=== PATIENT | female | born 1945 | race Caucasian/White ===

== ENCOUNTER → 2017-08-14 | Outpatient (CLI) | payer MEDICARE ==
[~2017-08-14] MED LIST: LIDOCAINE 1%, 20ML ONE; LIDOCAINE 1%-EPI 1:100K, 20ML ONE; SODIUM BICARBONATE 4.0%, 5ML ONE
== END | disposition home or self-care (01) ==
LOC: CFH 10:30
PROVIDERS: ATTEND Nurse Practitioner Primary Care
DX: N63.22 Unspecified lump in the left breast, upper inner quadrant (principal)
CPT/HCPCS: 19083; 88305; J3490; 77065

== ENCOUNTER → 2017-10-23 | Outpatient (CLI) | payer MEDICARE ==
[~2017-10-23] MED LIST changes: +ATOR40TA PO; +ERGO500017 PO; +LEVO150T5 PO; -LIDOCAINE 1%, 20ML ONE; -LIDOCAINE 1%-EPI 1:100K, 20ML ONE; +NADO80TA PO; -SODIUM BICARBONATE 4.0%, 5ML ONE
== END | disposition home or self-care (01) ==
LOC: STAR 08:45
PROVIDERS: ATTEND Surgery
DX: Z01.818 Encounter for other preprocedural examination (principal)
CPT/HCPCS: 93005

== ENCOUNTER → 2017-10-25 | Outpatient (CLI) | payer MEDICARE ==
[~2017-10-25] MED LIST changes: +LIDOCAINE 1%, 20ML ONE; +LIDOCAINE 1%-EPI 1:100K, 20ML ONE; +SODIUM BICARBONATE 4.0%, 5ML ONE
== END | disposition home or self-care (01) ==
LOC: CFH 07:21
PROVIDERS: ATTEND Surgery
DX: D24.2 Benign neoplasm of left breast (principal)
CPT/HCPCS: 19285; 77065; J3490

== ENCOUNTER 2017-10-28 06:09 | Day surgery (SDC) | payer MEDICARE ==
[2017-10-23 09:26] VITALS: BP 145/80
[~2017-10-28] VITALS: Ht 157.5 cm; Wt 82.7 kg
[~2017-10-28 06:09] MED LIST changes: -LIDOCAINE 1%, 20ML ONE; -LIDOCAINE 1%-EPI 1:100K, 20ML ONE; -SODIUM BICARBONATE 4.0%, 5ML ONE
[2017-10-28] MEDS ORDERED: BUPIVACAINE/PF 0.5% ONE (06:13)
[2017-10-28] MEDS ORDERED: EPINEPHRINE 1 MG/ML, 1ML ONE (06:14)
[2017-10-28] MEDS ORDERED: LACTATED RINGERS 1,000 ML IV SCH (06:36)
[2017-10-28] MEDS ORDERED: LIDOCAINE-MPF 1%, 2ML INFIL ONE (07:00)
[2017-10-28] MEDS ORDERED: MIDAZOLAM 1 MG/ML, 2ML ONE (07:14)
[2017-10-28] MEDS ORDERED: FENTANYL PF 100 MCG/2ML ONE (07:14)
[2017-10-28] MEDS ORDERED: CEFAZOLIN 1,000 MG ONE (07:27)
[2017-10-28] MEDS ORDERED: DEXAMETHASONE 4 MG/ML, 1ML ONE (07:27)
[2017-10-28] MEDS ORDERED: ONDANSETRON 2MG/ML, 2ML ONE (07:27)
[2017-10-28] MEDS ORDERED: PROPOFOL 10 MG/ML, 20ML ONE (07:27)
[2017-10-28] MEDS ORDERED: PROMETHAZINE 25 MG/ML, 1ML IV PRN (08:00)
[2017-10-28] MEDS ORDERED: LORazepam 2 MG/ML, 1ML IVPush PRN (08:00)
[2017-10-28] MEDS ORDERED: MEPERIDINE/PF 25MG/0.5ML IVPush PRN (08:00)
[2017-10-28] MEDS ORDERED: FENTANYL PF 100 MCG/2ML IV PRN (08:00)
[2017-10-28] MEDS ORDERED: ALBUTEROL SULFATE 2.5 MG/3 ML NPPB PRN (08:00)
[2017-10-28] MEDS ORDERED: OXYcodone 5 MG/5 ML ORAL.SOL UDC PO PRN (08:00)
[2017-10-28] MEDS ORDERED: ACETAMINOPHEN 325 MG TABLET PO PRN (08:00)
[2017-10-28] MEDS ORDERED: hydrALAzine 20 MG/ML, 1ML IV PRN (08:00)
[2017-10-28] MEDS ORDERED: HYDROmorphone 1 MG/ML, 1ML IV PRN (08:00)
[2017-10-28] MEDS ORDERED: KETOROLAC 30 MG/1 ML IV PRN (08:00)
[2017-10-28] MEDS ORDERED: METOPROLOL 1 MG/ML, 5ML IV PRN (08:00)
[2017-10-28] MEDS ORDERED: ACETAMINOPHEN 650 MG/20.3 ML UDC ONE (08:19)
[2017-10-28] MEDS ORDERED: OXYcodone 5 MG/5 ML ORAL.SOL UDC ONE (08:20)
[2017-10-28] MEDS ORDERED: hydrALAzine 20 MG/ML, 1ML ONE (08:36)
== END 2017-10-28 09:50 | disposition home or self-care (01) ==
LOC: OUT 06:09
PROVIDERS: ATTEND Surgery
DX: D24.2 Benign neoplasm of left breast (principal); E78.00 Pure hypercholesterolemia, unspecified; E03.9 Hypothyroidism, unspecified; I47.1 Supraventricular tachycardia; Z79.899 Other long term (current) drug therapy; Z72.89 Other problems related to lifestyle
CPT/HCPCS: 19125; 76098; 88307; 88342; J0171; J0360; J0690; J1100; J2250; J2405; J2704; J3010; J3490; G0461